=== PATIENT | female | born 1960 | race Caucasian/White ===

== ENCOUNTER → 2018-01-15 14:26 | Outpatient (CLI) | payer BC, SELFPAY ==
[2018-01-17 10:29] LABS: Carcinoembryonic Antigen 1.3 ng/mL (0.0-4.7)
== END ==
PROVIDERS: Visit Provider Obstetrics & Gynecology
DX: D39.11 Neoplasm of uncertain behavior of right ovary (principal); D39.12 Neoplasm of uncertain behavior of left ovary
CPT/HCPCS: 36415; 82378; 86304

== ENCOUNTER 2019-10-15 09:17 | Inpatient (IN) | payer BC, SELFPAY ==
[2019-10-15] VITALS (11 sets, daily range): BP systolic 92–103; BP diastolic 54–72; PULSE 79–107; RESP 16–18; TEMP 36.4–37.4; O2SAT 96–100; BMI 29.2; BMI 27.6
--- NOTE | 2019-10-15 09:30 | EKG12_ITS ---
Test Reason : SYNCOPE/FALL Blood Pressure : / mmHG Vent. Rate : 103 BPM Atrial Rate : 103 BPM P-R Int : 158 ms QRS Dur : 086 ms QT Int : 410 ms P-R-T Axes : 044 043 055 degrees QTc Int : 537 ms Sinus tachycardia Prolonged QT Abnormal ECG Confirmed by NILTON FOSTER, RAMY ([id number]), managing editor LEON GARCIA ([id number]) on 10/19/2019 9:32:26 AM Referred By: DELIA/SHEREE Confirmed By:MIKO CALLAWAY MD
--- NOTE | 2019-10-15 09:30 | CT_ITS ---
STUDY: CT BRAIN WITHOUT CONTRAST REASON FOR EXAM: Female, 59 years old. FALL, LAC TO UPPER LT EYEBROW RADIATION DOSAGE (If Supplied By Facility): CTDIvol = ( 44.99 ) mGy, DLP = ( 779.24 ) mGycm TECHNIQUE: Transaxial CT imaging of the brain was performed without administration of intravenous contrast material. Individualized dose optimization techniques were used for this CT. COMPARISON: No relevant priors. FINDINGS: Normal soft tissue structures. Normal calvarium. Normal size ventricles and extra-axial spaces for the patient''s age. Normal white matter tracts of the cerebral hemispheres. Normal basal ganglia and thalami. Normal brainstem. Normal cerebellum. There is no intracranial hemorrhage. There are no findings of an acute ischemic infarction. Normal visualized paranasal sinuses. CT/Brain/Head without Contrast IMPRESSION: Normal unenhanced CT scan of the brain. Electronically Signed: Jorge Salomon, at 10:34 EDT , Service support ,
--- NOTE | 2019-10-15 09:30 | RAD_ITS ---
STUDY: X-RAY CHEST REASON FOR EXAM: Female, 59 years old. SOB, recent fall TECHNIQUE: Single AP portable view of the chest. COMPARISON: None. FINDINGS: A right sided catheter is seen with the tip at the junction of the superior vena cava and right atrium. The lungs are clear and expanded. There is no demonstrated pleural abnormality. Normal size heart. Normal mediastinum and aravind. Normal visualized pulmonary arteries. Normal visualized aortic arch and descending thoracic aorta. Normal visualized thoracic spine. Normal visualized ribs, clavicles, and shoulders. Gaseous distention of the transverse colon. RAD/Chest 1 View (Portable) IMPRESSION: No acute abnormality is seen. Electronically Signed: Jorge Salomon, at 10:34 EDT , Service support ,
--- NOTE | 2019-10-15 09:31 | CT_ITS ---
STUDY: CT CERVICAL SPINE WITHOUT CONTRAST REASON FOR EXAM: Female, 59 years old. FALL, LAC TO UPPER LT EYEBROW RADIATION DOSAGE (If Supplied By Facility): CTDIvol = ( 20.95 ) mGy, DLP = ( 477.40 ) mGycm TECHNIQUE: High resolution transaxial imaging was performed without contrast material. Sagittal and coronal images were reconstructed. Individualized dose optimization techniques were used for this CT. COMPARISON: None FINDINGS: Normal craniovertebral junction. Normal anterior atlantoaxial articulation. Normal odontoid process. Normal cervical lordosis. Normal vertebral bodies and posterior osseous elements. C2-3: Normal endplates. Normal disc height and morphology. Normal central canal and intervertebral neuroforamina. C3-4: Normal endplates. Normal disc height and morphology. Normal central canal and intervertebral neuroforamina. C4-5: Normal endplates. Normal disc height and morphology. Normal central canal and intervertebral neuroforamina. C5-6: Normal endplates. Normal disc height and morphology. Normal central canal and intervertebral neuroforamina. C6-7: Normal endplates. Normal disc height and morphology. Normal central canal and intervertebral neuroforamina. C7-T1: Normal endplates. Normal disc height and morphology. Normal central canal and intervertebral neuroforamina. Normal visualized soft tissue structures. CT/Spine Cervical without Contras IMPRESSION: Normal unenhanced CT examination of the cervical spine. Electronically Signed: Jorge Salomon, at 10:36 EDT , Service support ,
--- NOTE | 2019-10-15 09:34 | ED.VIS.GEN ---
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 Patient states that her last chemo was yesterday she thinks. She states that she has been having some nausea and diminished appetite. She states that today, she got up from a seated position. She thinks that she passed out. She struck her head. She is unsure if she lost consciousness. She denies fevers or chills. She has no other systemic complaints. She denies any pain. She does admit to mild nausea. She states for the past 2 days, she has had trouble focusing, which she states is not atypical for her. Prior similar symptoms: Yes Recent Illness/Hospitalization: Yes Past Medical History - Allergies and Home Meds Allergies/Adverse Reactions: Allergies paclitaxel [From Taxol] Allergy (Verified 10/15/19 09:18) Anaphylaxis Prior records reviewed: Yes Past Medical History: - - SVT, ovarian cancer, on TPN, Smoking Status: Never smoker Review of Systems General: Reports: Malaise. Denies: Chills, Fever, Sweats Eyes: Denies: Visual changes - bilaterally, Diplopia ENT: Denies: Rhinorrhea, Sore throat Cardiovascular: Denies: Chest pain, Palpitations Respiratory: Denies: Dyspnea, Cough, Dyspnea on exertion Gastrointestinal: Reports: Nausea. Denies: Abdominal pain, Vomiting, Diarrhea, Melena, Hematochezia Genitourinary: Denies: Dysuria, Hematuria, Frequency Musculoskeletal: Denies: Back pain, Extremity Pain Skin: Denies: Rash, Wounds Neurological: Denies: Headache, Weakness, Numbness Physical Exam Vital Signs/Narrative: Vital Signs Temp Pulse Resp BP Pulse Ox 10/15/19 09:18 99.3 F H 107 H 16 96/72 96 Inital Vital Signs reviewed: Yes General: Well nourished, Well developed, No Acute Distress Head: Normocephalic, Trauma - 4 cm full-thickness laceration above the left eyebrow. Eyes: Perrl, EOMI ENT: Moist mucous membranes, No rhinorrhea Neck: Supple, Nontender Cardiovascular: Regular rate, Regular rhythm, No murmurs Respiratory: No distress, CTA bilaterally, Chest nontender Abdomen: Soft, Nontender, Nondistended, Normal bowel sounds Back: Nontender, Normal Inspection Extremities: Nontender, No edema Skin: Normal color, No rash Neurological: Alert, Oriented x3, Cranial nerves II-XII grossly intact, Normal Strength, Normal Sensation Psychological: Normal affect, Normal Mood Diagnostic/Tx/Re-eval Clinical Impression(s) from Imaging Studies Brain CT 10/15/19 09:30 IMPRESSION: Normal unenhanced CT scan of the brain. Electronically Signed: Jorge Salomon, at 10:34 EDT , Service support , Chest X-Ray 10/15/19 09:30 IMPRESSION: No acute abnormality is seen. Electronically Signed: Jorge Salomon, at 10:34 EDT , Service support , Cervical Spine CT 10/15/19 09:31 IMPRESSION: Normal unenhanced CT examination of the cervical spine. Electronically Signed: Jorge Salomon, at 10:36 EDT , Service support , Abnormal Lab Results 10/15/19 10/15/19 10/15/19 09:54 09:54 09:54 WBC 2.9 L RBC 2.97 L Hgb 8.9 L Hct 27.5 L MCV 92.6 MCH 30.0 MCHC 32.4 RDW Std Deviation 55.0 H RDW Coeff of Kalyani 16.2 H Plt Count 411 MPV 10.1 Immature Gran % (Auto) 0.700 Neut % (Auto) 78.8 H Lymph % (Auto) 16.7 L Noble % (Auto) 3.5 Eos % (Auto) 0.0 Baso % (Auto) 0.3 Absolute Neuts (auto) 2.3 Absolute Lymphs (auto) 0.48 L Nucleated RBC % 1.7 PT 13.5 INR 1.1 Sodium 129 L Potassium 2.4 L* Chloride 73 L* Carbon Dioxide > 45.0 H* Anion Gap TNP BUN 80 H Creatinine 1.65 H Estim Creat Clear Calc 1.46 Est GFR (MDRD) Af Amer 41 L Est GFR (MDRD) Non-Af 34 L BUN/Creatinine Ratio 48.5 H Glucose 113 H Lactic Acid Calcium 8.7 Total Bilirubin 0.60 AST 42 H ALT 23 Alkaline Phosphatase 77 Total Protein 7.4 Albumin 2.0 L Globulin 5.4 H Albumin/Globulin Ratio 0.4 L 10/15/19 09:54 WBC RBC Hgb Hct MCV MCH MCHC RDW Std Deviation RDW Coeff of Kalyani Plt Count MPV Immature Gran % (Auto) Neut % (Auto) Lymph % (Auto) [place] % (Auto) Eos % (Auto) Baso % (Auto) Absolute Neuts (auto) Absolute Lymphs (auto) Nucleated RBC % PT INR Sodium Potassium Chloride Carbon Dioxide Anion Gap BUN Creatinine Estim Creat Clear Calc Est GFR (MDRD) Af Amer Est GFR (MDRD) Non-Af BUN/Creatinine Ratio Glucose Lactic Acid 2.5 H* Calcium Total Bilirubin AST ALT Alkaline Phosphatase Total Protein Albumin Globulin Albumin/Globulin Ratio - Rhythm Strip Rhythm Strip: Sinus Rhythm Rate: 80 Ectopy: None - EKG Initial EKG Interpretation: Sinus Tachycardia, - Prior: No Prior - Sinus tachycardia. Rate of 103. Prolonged QT. No acute ischemia. - Medical Decision Making The patient is a 59-year-old female with history of underlying ovarian cancer with peritoneal metastasis, last chemotherapy on Saturday, last paracentesis yesterday that presents to the emergency department with nausea and syncope. Patient states that she has just been nauseated with diminished oral intake. She had a fall today and hit the ground. She states that she did pass out. The patient was recently hospitalized at [facility]. She did have an ablation at that time. She does have large laceration. She underwent CT of the head and C-spine which are unremarkable for acute process. Her laceration was repaired. EKG was obtained which showed a prolonged QT without evidence of acute ischemia. Metabolic work-up was pursued. The patient is hypochloremic and hypokalemic. She was given IV fluids and potassium replacement. Clinically, she does appear to have dehydration and with electrolyte abnormalities and syncope, I do feel that she would benefit from admission. The patient was discussed with the hospitalist. Impression 1. Syncope 2. Hypokalemia 3. Hypochloremia 4. Dehydration 5. History of ovarian cancer with active chemotherapy Procedures - Lacerations No standard instances Length: 1.57 in Depth: Skin Shape: Linear Prep: Sterile Conditions, Fide Laceration repair: Irrigated, Lidocaine with epi, Local Irrigated (ml): 200 Number of Sutures/Tacho: 8 Suture Information: Vicryl, 5-0
[2019-10-15] MEDS: 0.9% Normal Saline 1,000 ML 1000 ML IV (09:54)
[2019-10-15 10:05] LABS: Hematocrit 27.5 % (37-47); Hemoglobin 8.9 g/dL (12.0-15.0); Mean Corp Hgb Conc 32.4 g/dL (32-36); Mean Corpuscular Volume 92.6 fL (81-99); Mean Platelet Vol. 10.1 fl (6.2-12.0); POSITIVE DIFFERENTIAL YES; POSITIVE MORPHOLOGY YES; Platelet Count 411 K/mm3 (150-450); RBC Distribution Width CV 16.2 % (11.6-14.6); Red Blood Count 2.97 M/mm3 (4.2-5.4); White Blood Count 2.9 K/mm3 (4.4-11.0)
[2019-10-15 10:13] LABS: International Normalized Ratio 1.1; Prothrombin Time (Protime)PT. 13.5 SECONDS (11.7-14.9)
[2019-10-15 10:31] LABS: ALB/GLOB Ratio 0.4 RATIO (0.9-2.4); AST(SGOT) 42 U/L (15-37); Alanine Aminotransfer ALT/SGPT 23 U/L (13-56); Alkaline Phosphatase 77 U/L (45-117); BUN 80 mg/dL (7-18); BUN/Creat Ratio 48.5 RATIO (10-20); Calcium,Total 8.7 mg/dL (8.5-10.1); Carbon Dioxide > 45.0 mmol/L (21.0-32.0); Chloride 73 mmol/L (98-107); Creatinine, Serum 1.65 mg/dL (0.55-1.02); EST Glomerular Filtration Rate 34 mL/min (>60); Est Glom Filt Rate - Afr Amer 41 mL/min (>60); Estimated Creatinine Clearance 1.46 ml/min; Globulin 5.4 g/dL (2.2-4.2); Glucose 113 mg/dL (74-106); Lactic Acid 2.5 mmol/L (0.4-1.9); Potassium 2.4 mmol/L (3.5-5.1); Protein, Total 7.4 g/dL (6.4-8.2); Sodium Level 129 mmol/L (136-145)
[2019-10-15 10:49] LABS: Differential Indicated MANUAL DIFF; Metamyelocyte 1 % (0-1); Neutrophil-Band 20 % (0-5); Neutrophil-Segmented 61 % (47-70)
[2019-10-15 10:50] LABS: Lymphocyte 16 % (19-41); Monocyte 2 % (0-10); Nucleated Red Bld Cells,Manual 3 % (0-5)
[2019-10-15 10:51] LABS: Platelet Estimate ADEQUATE (ADEQ); Red Cell Morphology NORM C+C NORMAL (NORM C&C)
[2019-10-15 11:04] LABS: Magnesium 2.7 mg/dL (1.6-2.6)
[2019-10-15 11:31] LABS: Absolute Lymphocyte Count 0.46 X10^3/uL (0.83-4.51); Absolute Neutrophil Count 2.3 X10^3/uL (2.0-7.7)
[2019-10-15 11:32] LABS: Scan Smear per Review Criteria MANUAL DIFF
[2019-10-15] MEDS: 0.9% Normal Saline 1,000 ML 125 ML IV (13:43)
[2019-10-15 14:01] LABS: Reflex Lactate? Y
[2019-10-15 14:09] LABS: Mucous, Urine 0 SEEN /hpf (<or=2+)
[2019-10-15 14:14] LABS: Color, Urine Straw (Yellow); Glucose, Dipstick Normal (Normal); Ketone-Dipstick Negative (Negative); Leukocyte Esterase-Dipstick 100 /ul (Negative); Nitrite-Dipstick Negative (Negative); Occult Blood-Urine 10 /ul (Negative); Protein-Dipstick 15 mg/dl (Negative); Urine Bilirubin Dipstick Negative (Negative); Urine Clarity Sl. Cloudy (Clear); Urine Urobilinogen Normal (Normal)
[2019-10-15 14:28] LABS: Bacteria 4+ /hpf (None Seen); Red Blood Cells-Urine 0-5 SEEN /hpf (0-5); Squamous Epithelial Cells - UA 0-5 SEEN /hpf (5-10); White Blood Cells 5-10 SEEN /hpf (0-5)
--- NOTE | 2019-10-15 14:47 | PCM.HP.STD ---
History of Present Illness Date of Admission: 10/15/19 Chief Complaint: Syncope The patient is a 59 year old F with a PMH as below who presents with syncope. She says today she was in the bathroom and she fell forward and hit her head and blacked out. Her daughter who lives with her said that she heard the fall and states that her mom was only out for a couple of seconds. She denies any palpitations prior to the fall but she has been feeling weak since her recent admission to the [facility] [place] for an ablation for SVT about a month ago. She has a history of ovarian cancer with peritoneal mets, this was first diagnosed and 2017 and she underwent chemotherapy and went into remission for 6 months and since then has been undergoing chemotherapy. 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 She has been on TPN since April per the daughter. She also gets paracentesis every other day by home health, her last drainage was about 350 cc yesterday. She does not eat or drink very well and when she presented to the ER today she was anemic with a potassium of 2.4, chloride of 73 and a CO2 greater than 45. Her creatinine is 1.65 and her lactic acid was elevated to 2.5 without any signs of infection. She denies any abdominal pain or fevers, chills. She denies any dysuria but she does have 4+ urine bacteria. 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 Denies: Chills, Fever, Weight Change HEENT: Denies: Head Aches, Sinus Congestion, Sinus Drainage Cardiovascular: Denies: Chest Pain, Palpitations Respiratory: Denies: Cough, Shortness of breath at rest, Sputum production Gastrointestinal: Denies: Abdominal Pain, Nausea, Vomiting Genitourinary: Denies: Dysuria Musculoskeletal: Denies: Joint Pain, Joint Tenderness Skin: Denies: Rash, Wounds Neurological: Denies: Numbness, Tingling, Focal weakness Psychiatric: Denies: Anxiety, Depression Hematologic/ Lymphatic: Denies: Easy Bruising, Easy Bleeding VTE Information - Inpt Only VTE Present on Admission: No - Physical Exam Vitals/I&O's: Vital Signs Temp Pulse Resp BP Pulse Ox 97.6 F L 93 18 99/59 L 96 10/15/19 12:15 10/15/19 13:37 10/15/19 12:15 10/15/19 13:36 10/15/19 12:15 Oxygen Delivery Method Room Air Weight: 176 lb 9.444 oz Body Mass Index (BMI) 27.6 Orthostatic Vital Signs Start: 10/15/19 13:36 Freq: q24h Status: Active Protocol: Activity Type Activity Date Activity User E-Sign Co-Sign Detail Recorded Client Recorded Date Recorded By Document 10/15/19 13:36 [facility] [id number] 10/15/19 13:56 [facility] 10/15/19 13:36 Orthostatic Vitals Sitting -Blood Pressure (90/60-120/80) 99/64 -Extremity Use Right Arm -Pulse Rate (60-100) 92 Lying -Blood Pressure (90/60-120/80) 99/59 L -Extremity Use Right Arm -Pulse Rate (60-100) 91 Intake and Output for Last 24 Hours 10/13/19 10/14/19 10/15/19 23:59 23:59 23:59 Intake Total 1000 / 1000 Balance 1000 / 1000 General: Alert, Oriented x3, Cooperative, Lethargic HEENT: Atraumatic, PERRLA, EOMI, Normocephalic Oral: Dry Mucosa Neck: Supple, No JVD Lungs: Clear to auscultation, Normal air movement, No rhonchi, No wheeze, No rales, Diminished Cardiovascular: Regular rate, Regular Rhythm, Normal S1, Normal S2, No murmurs Abdomen: Soft, Non Tender, No Hepato-splenomegaly, Distended Extremities: No edema, Capillary Refill Less than 3 Seconds Skin: No rashes, No breakdown Neurological: Neuro grossly intact, Sensory exam intact to light touch and pain Psych/Mental Status: Normal Affect, Appropriate Laboratory Results 10/15/19 09:54: WBC 2.9 L, RBC 2.97 L, Hgb 8.9 L, Hct 27.5 L, MCV 92.6, MCH 30.0, MCHC 32.4, RDW Std Deviation 55.0 H, RDW Coeff of Kalyani 16.2 H, Plt Count 411, MPV 10.1, Immature Gran % (Auto) CHILD PSYCHOLOGIST, Neut % (Auto) CHILD PSYCHOLOGIST, Lymph % (Auto) CHILD PSYCHOLOGIST, [place] % (Auto) CHILD PSYCHOLOGIST, Eos % (Auto) CHILD PSYCHOLOGIST, Baso % (Auto) CHILD PSYCHOLOGIST, Absolute Neuts (auto) 2.3, Absolute Lymphs (auto) 0.46 L, Neutrophils % (Manual) 61, Band Neutrophils % 20 H, Lymphocytes % (Manual) 16 L, Monocytes % (Manual) 2, Metamyelocytes % 1, Nucleated RBC % CHILD PSYCHOLOGIST, Nucleated RBCs/100 WBC 3, Diff Path Review July, Platelet Estimate ADEQUATE, RBC Morphology NORM C+C 10/15/19 09:54: PT 13.5, INR 1.1 10/15/19 09:54: Sodium 129 L, Potassium 2.4 L*, Chloride 73 L*, Carbon Dioxide > 45.0 H*, Anion Gap TNP, BUN 80 H, Creatinine 1.65 H, Estim Creat Clear Calc 1.46, Est GFR (MDRD) Af Amer 41 L, Est GFR (MDRD) Non-Af 34 L, BUN/Creatinine Ratio 48.5 H, Glucose 113 H, Calcium 8.7, Total Bilirubin 0.60, AST 42 H, ALT 23, Alkaline Phosphatase 77, Total Protein 7.4, Albumin 2.0 L, Globulin 5.4 H, Albumin/Globulin Ratio 0.4 L 10/15/19 09:54: Lactic Acid 2.5 H* 10/15/19 09:54: Magnesium 2.7 H 10/15/19 10:20: Urine Color Straw, Urine Clarity Sl. Cloudy, Urine pH 8.0, Ur Specific [place] 1.010, Urine Protein 15 H, Urine Glucose (UA) Normal, Urine Ketones Negative, Urine Occult Blood 10 H, Urine Nitrite Negative, Urine Bilirubin Negative, Urine Urobilinogen Normal, Ur Leukocyte Esterase 100 H, Urine RBC 0-5 SEEN, Urine WBC 5-10 SEEN, Ur Squamous Epith Cells 0-5 SEEN, Urine Bacteria 4+, Urine Mucus 0 SEEN Current Medications Acetaminophen (Tylenol) 650 mg PO Q6H PRN PRN PRN Reason: Pain Score 1-10/Temp > 100.7 F Heparin Sodium (Porcine) (Heparin Na) 5,000 unit SC Q8 ALEXANDRA Sodium Chloride () 1,000 mls @ 125 mls/hr IV .Q8H ALEXANDRA Last Admin: 10/15/19 13:43 Dose: 125 mls/hr Documented by: Sodium Chloride () 250 mls @ 15 mls/hr IV .[id number] PRN PRN Reason: Saline Flush Sodium Chloride () 250 mls @ 15 mls/hr IV .[id number] PRN PRN Reason: Additional IVPB Infusion Melatonin (Melatonin) 3 mg PO QHS PRN PRN PRN Reason: INSOMNIA Ondansetron HCl (Zofran) 4 mg IV Q8H PRN PRN PRN Reason: NAUSEA/VOMITING Sodium Chloride () 10 - 40 ml IV UD PRN PRN Reason: SALINE FLUSH Sodium Chloride (0.9% Nacl (Sterile) Posiflush) 10 - 40 ml IV UD PRN PRN Reason: Port access or dressing change Assessment/Plan 1. Syncope secondary to dehydration with possible XENA/hypokalemia and hyponatremia -Contraction alkalosis secondary to poor p.o. intake and peritoneal drainage, calcium 73 with an elevated bicarb -She has a PEG tube set to gravity drainage therefore it is unclear as to how much she actually absorbs p.o. -Her right nephrostomy tube is secondary to obstruction likely from peritoneal mets, will continue this to drainage -We will attempt to have a paracentesis done tomorrow by nursing staff otherwise may have to send him to radiology for drainage, does not appear that she has significant volume drained each time, yesterday drained 350 cc per the daughter -Nutrition is primarily through TPN that she has been on since April -Continue with IV fluids and repeat labs in the morning -We will check an echo given her recent ablation and the fact that she has a prolonged QT -Continue with her TPN -Her creatinine on admission is 1.65 however we do not have a baseline to compare to. 2. Ovarian cancer with peritoneal metastases -She has been undergoing chemotherapy since 2016 with a single remission for 6 months -I did have a 20-minute discussion with the family on both CODE STATUS as well as palliative care and hospice. She is a DNR CCA, however it does not appear that they are ready to discuss palliative care or hospice. They would like to continue with chemotherapy at the moment, they state that prior to her admission to [facility] [place] with SVT her quality of life was pretty good and that she was much more ambulatory than she has been the last several weeks. 3. SVT status post ablation -Currently on metoprolol 12.5 mg twice daily, EKG in the ER demonstrated prolonged QT -We will continue with her beta-elo but will obtain an echo DVT: Heparin Inpatient E&M: 42217 Init Hosp L3 Procedures: 52349 Advncd Care Plan 30 Min
--- NOTE | 2019-10-15 14:55 | ECHOD_ITS ---
Reason For Study: Syncope Procedure This was a 2D Doppler, Color Flow transthoracic echocardiogram. The study was technically difficult. Exam performed portable in patient room. Left Ventricle Normal LV size. Left ventricular systolic function is normal. The estimated ejection fraction is 65 %. Transmitral doppler flow suggestive of impaired relaxation of left ventricle. No regional wall motion abnormalities noted. Right Ventricle Normal RV size. Normal systolic function. Atria Normal left atrium. Normal right atrium. No doppler evidence for ASD. Mitral Valve There is no mitral annular calcification. Normal mitral valve. Trivial mitral valve insufficiency. Tricuspid Valve Normal tricuspid valve. Trivial tricuspid valve insufficiency. Right ventricular systolic pressure estimated to be 33 mmHg. Aortic Valve Trisinus/trileaflet aortic valve. Normal aortic valve. Pulmonic Valve The pulmonic valve is not well visualized. Great Vessels Normal sized aortic root. Pericardium/Pleural No pericardial effusion. MMode/2D Measurements & Calculations LVIDd: 2.5 cm IVSd: 0.95 cm Ao root diam: 3.2 cm LVIDs: 1.9 cm LVPWd: 0.83 cm RVDd: 2.7 cm FS: 24.7 % LAV(MOD-bp): 18.4 ml LA A4 area: 8.4 cm2 LA dimension(2D): 2.8 cm LAV(MOD-bp) Indexed: 9.6 ml/m2 LAV(MOD-sp2): 22.8 ml LAV(MOD-sp4): 14.7 ml RA A4 area: 8.1 cm2 Doppler Measurements & Calculations MV E max ronaldo: 70.7 cm/sec Lat Peak E' Ronaldo: 11.6 cm/sec Med Peak E' Ronaldo: 8.3 cm/sec MV A max ronaldo: 91.9 cm/sec E/E' lat: 6.1 E/E' med: 8.5 MV E/A: 0.77 Ao V2 max: 134.5 cm/sec LV V1 max: 123.7 cm/sec PA V2 max: 117.3 cm/sec Ao max P.2 mmHg LV V1 max P.1 mmHg TR max ronaldo: 274.5 cm/sec TR max P.1 mmHg Interpretation Summary The study was technically difficult. Left ventricular systolic function is normal. The estimated ejection fraction is 65 %. Trivial mitral valve insufficiency. Trivial tricuspid valve insufficiency. Right ventricular systolic pressure estimated to be 33 mmHg. Transmitral doppler flow suggestive of impaired relaxation of left ventricle Ordering Physician: Torsten Farrell Performed By: Samuel Sumner RVT
[2019-10-15] MEDS: Heparin Injection (Vial) 5,000 UNIT/ML VIAL 5000 UNIT SC ×2 (15:08→21:20)
--- NOTE | 2019-10-15 15:30 | CASEMGMT ---
SW completed a Palliative tool for patient. She did score a 4, however physician spoke with patient and her daughter about Palliative and Hospice and they are not interested at this time. Honey VENCES MSW
--- NOTE | 2019-10-15 15:49 | PCM.NTREPORT ---
Nutrition Therapy Report - History Nutrition Services has been consulted to:: Manage parenteral nutrition Current diet / nutrition support order:: Regular diet; will change to full liquids per pt request - Anthropometric Measurements Height:: 5 ft 7 in Weight:: 80.1 kg Body Mass Index (BMI):: 27.6 - Relevant Labs Relevant Labs:: WBC 2.9 K/mm3 (4.4-11.0) L 10/15/19 09:54 RBC 2.97 M/mm3 (4.2-5.4) L 10/15/19 09:54 Hgb 8.9 g/dL (12.0-15.0) L 10/15/19 09:54 Hct 27.5 % (37-47) L 10/15/19 09:54 RDW Std Deviation 55.0 fl (35.1-43.9) H 10/15/19 09:54 RDW Coeff of Kalyani 16.2 % (11.6-14.6) H 10/15/19 09:54 Absolute Lymphs (auto) 0.46 X10^3/uL (0.83-4.51) L 10/15/19 09:54 Band Neutrophils % 20 % (0-5) H 10/15/19 09:54 Lymphocytes % (Manual) 16 % (19-41) L 10/15/19 09:54 Sodium 129 mmol/L (136-145) L 10/15/19 09:54 Potassium 2.4 mmol/L (3.5-5.1) L* 10/15/19 09:54 Chloride 73 mmol/L (98-107) L* 10/15/19 09:54 Carbon Dioxide > 45.0 mmol/L (21.0-32.0) H* 10/15/19 09:54 BUN 80 mg/dL (7-18) H 10/15/19 09:54 Creatinine 1.65 mg/dL (0.55-1.02) H 10/15/19 09:54 Est GFR (MDRD) Af Amer 41 mL/min (>60) L 10/15/19 09:54 Est GFR (MDRD) Non-Af 34 mL/min (>60) L 10/15/19 09:54 BUN/Creatinine Ratio 48.5 RATIO (10-20) H 10/15/19 09:54 Glucose 113 mg/dL (74-106) H 10/15/19 09:54 Lactic Acid 2.5 mmol/L (0.4-1.9) H* 10/15/19 09:54 Magnesium 2.7 mg/dL (1.6-2.6) H 10/15/19 09:54 AST 42 U/L (15-37) H 10/15/19 09:54 Albumin 2.0 g/dL (3.2-5.0) L 10/15/19 09:54 Globulin 5.4 g/dL (2.2-4.2) H 10/15/19 09:54 Albumin/Globulin Ratio 0.4 RATIO (0.9-2.4) L 10/15/19 09:54 - Assessment Food / Nutrition-Related History:: Pt with eyes closed and clearly does not feel like talking so, daughter at bedside answered most questions--- pt takes some full liquids at home but, TPN is main source of nutrition & PEG tube is for gravity drain not for nutrition. Daughter will bring in TPN, as she does not know TPN formulation but, did clarify that the pt receives lipids every saturday & CHO/Pro daily. Pt does not take ONS with full liquids but, open to trying as tolerated. Daughter reports UBW~200 lbs approx 1-2 months ago--wt loss calculated~12% which is significant for malnutrition. 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 Pt passed dysphagia screening--will change current diet from regular as ordered to full liquids as tolerated. - Nutrition Diagnosis Problem / Etiology / Signs & Symptoms (PES):: Pro/fifi malnutrition of chronic disease related to inability to take adequate PO nutrition as evidenced by wt loss~12% x past 1-2 months, TPN for nutrition to supplement inadequate oral intake. Evidence of Malnutrition Exists:: Yes Severe PCM:: Chronic Illness - Nutrition Intervention Nutrition Prescription:: Estimated Nutrition needs~[id number] kcal and ~90-110 gm protein/day - Food / Nutrient Delivery Interventions Summary of nutrition intervention:: Will change diet to full liquids with ensure pudding TID w/ meals. Will order TPN with lipid infusion tomorrow per home TPN regimen. Will order daily weights. Nutrition support ordered as / adjusted to:: Will order TPN to start tomorrow 8/[address] Stevens--2L 20%dextrose/5%AA with electrolytes, MVI, trace metals, folic acid along with 250 ml 20% lipid infusion to provide 2260 kcal and 100 gm protein/day. Check Triglyceride level in AM. Will change diet order from Regular to Full Liquids as per pt request. Daily weights. Nutrition education provided?: Yes - MNT Monitoring Further MNT monitoring and evaluation required?: Yes MNT Follow-up in:: 1-2 days
[2019-10-15 16:01] LABS: Lactic Acid 2.3 mmol/L (0.4-1.9)
[2019-10-15 16:51] LABS: Bedside Glucose 104 mg/dL (70-110)
--- NOTE | 2019-10-15 16:55 | NURSING ---
Report given to Leonor Beach RN at this time.
[2019-10-15] MEDS: 0.9% Saline Lock 10 ML Syringe IV (18:22)
[2019-10-15] MEDS: Ondansetron 4 MG/2 ML Vial IV (18:22)
[2019-10-16] VITALS (11 sets, daily range): BP systolic 90–120; BP diastolic 57–74; PULSE 103–122; RESP 17–18; TEMP 36.3–37.5; O2SAT 95–96
[2019-10-16] MEDS: 0.9% Normal Saline 1,000 ML 125 ML IV ×3 (00:01→16:31)
[2019-10-16 01:36] LABS: Bedside Glucose 96 mg/dL (70-110)
[2019-10-16] MEDS: Ondansetron 4 MG/2 ML Vial IV ×2 (03:49→10:19)
[2019-10-16 05:15] LABS: Absolute Lymphocyte Count 0.31 X10^3/uL (0.83-4.51); Absolute Neutrophil Count 0.8 X10^3/uL (2.0-7.7); Basophil# 0.03 X10^3/uL; Basophil% 2.5 % (0-1); Hematocrit 24.6 % (37-47); Lymphocyte # 0.31 X10^3/ul (4.0); Lymphocyte % 25.4 % (19-41); Mean Corp Hgb Conc 32.5 g/dL (32-36); Mean Corpuscular Volume 92.1 fL (81-99); Mean Platelet Vol. 9.9 fl (6.2-12.0); Monocyte# 0.04 X10^3/uL; Monocyte% 3.3 % (0-10); NRBC Flagged by Analyzer 1.6 % (0-5); Neutrophil # 0.79 X10^3/uL (2.7-7.7); Neutrophil % 64.7 % (47-70); POSITIVE COUNT YES; POSITIVE DIFFERENTIAL YES; POSITIVE MORPHOLOGY YES; Platelet Count 302 K/mm3 (150-450); RBC Distribution Width CV 16.5 % (11.6-14.6); RBC Distribution Width SD 55.5 fl (35.1-43.9); Red Blood Count 2.67 M/mm3 (4.2-5.4)
[2019-10-16 05:19] LABS: Differential Indicated SCAN CRITERIA MET; White Blood Count 1.2 K/mm3 (4.4-11.0)
[2019-10-16] MEDS: 0.9% Saline Lock 10 ML Syringe IV (05:28)
[2019-10-16] MEDS: Heparin Injection (Vial) 5,000 UNIT/ML VIAL 5000 UNIT SC (05:33)
[2019-10-16 05:41] LABS: Anisocytosis 1+; Platelet Estimate ADEQUATE (ADEQ)
[2019-10-16 05:46] LABS: ALB/GLOB Ratio 0.4 RATIO (0.9-2.4); AST(SGOT) 41 U/L (15-37); Alanine Aminotransfer ALT/SGPT 20 U/L (13-56); Albumin, Serum 1.8 g/dL (3.2-5.0); Alkaline Phosphatase 71 U/L (45-117); Anion Gap 5 (5-15); BUN 60 mg/dL (7-18); Calcium,Total 8.1 mg/dL (8.5-10.1); Chloride 85 mmol/L (98-107); Creatinine, Serum 1.82 mg/dL (0.55-1.02); EST Glomerular Filtration Rate 30 mL/min (>60); Est Glom Filt Rate - Afr Amer 37 mL/min (>60); Estimated Creatinine Clearance 33.16 ml/min; Glucose 101 mg/dL (74-106); Magnesium 2.3 mg/dL (1.6-2.6); Phosphorus 3.7 mg/dL (2.5-4.9); Potassium 2.7 mmol/L (3.5-5.1); Protein, Total 6.8 g/dL (6.4-8.2); Sodium Level 134 mmol/L (136-145)
[2019-10-16 05:55] LABS: Bedside Glucose 106 mg/dL (70-110)
[2019-10-16] MEDS: TBO-FILGRASTIM 300 MCG/0.5 ML ML SC (10:49)
[2019-10-16 12:08] LABS: Pathologist Review Reviewed
[2019-10-16 12:09] LABS: Pathologist Review Reviewed
--- NOTE | 2019-10-16 13:33 | CASEMGMT ---
RN CM Assessment Introduced role of CM to patient in room. Pt is lethargic, able to participate some in assessment, but not feeling well, then asked to hold on further questions until tomorrow. Patient did say her daughter was going to be speaking with the physician today. Patient has a history of ovarian cancer and has R percutaneous nephrostomy tube, PEG tube, Hernandez for TPN @ home. Patient has been living with her daughter. PCP: pt is just seeing oncologist for now. Specialist: Oncologist Pharmacy: [facility] Pharmacy benefit: yes Living Arrangements: Pt is living with her daughter in one story home. One step into home. Daughter is able to assist at home with ADL's, meals and home management. DME: wheeled walker, lift chair, BSC Infusion: [place] for TPN @ Home [facility]: [facility], [facility] Referral: Palliative/Hospice referral may be needed. DC PLAN: undetermined. Kane JACOBSEN RN ACM
--- NOTE | 2019-10-16 14:32 | CASEMGMT ---
Social Work SW met with pt daughter who states pt has decided that she would like to stop aggressive treatment and is ready for hospice. Pt will be going home with daughter Malaika who will be primary menagerie caretaker. Emotional support provided to Malaika and discussed hospice program. SW informed physician of pt choice and physician met with pt and confirmed this is pt choice. Referral made to [facility] and they will see pt today at 3:30. Per physician, pt will remain in hospital overnight for medication adjustment and to allow hospice to get DME in home. Anticipate d/c tomorrow to dgt home with [facility] hosp[facility] services. NAV Poe
[2019-10-16 14:45] LABS: Bedside Glucose 114 mg/dL (70-110)
--- NOTE | 2019-10-16 15:14 | PN_ITS ---
Subjective: She does not feel significantly improved from yesterday. No significant pain. Vitals/I&O's: Vital Signs Temp Pulse Resp BP Pulse Ox 97.4 F L 122 H 18 95/67 96 10/16/19 09:59 10/16/19 10:13 10/16/19 09:59 10/16/19 10:13 10/16/19 09:59 Oxygen Flow Rate (L/min) 2 Oxygen Delivery Method Room Air Weight: 178 lb 9.191 oz Body Mass Index (BMI) 27.6 Orthostatic Vital Signs Start: 10/15/19 13:36 Freq: q24h Status: Active Protocol: Activity Type Activity Date Activity User E-Sign Co-Sign Detail Recorded Client Recorded Date Recorded By Document 10/15/19 13:36 [facility] [id number] 10/15/19 13:56 [facility] 10/15/19 13:36 Orthostatic Vitals Sitting -Blood Pressure (90/60-120/80) 99/64 -Extremity Use Right Arm -Pulse Rate (60-100) 92 Lying -Blood Pressure (90/60-120/80) 99/59 L -Extremity Use Right Arm -Pulse Rate (60-100) 91 Intake and Output for Last 24 Hours 10/14/19 10/15/19 10/16/19 23:59 23:59 23:59 Intake Total 2558.33 / 2558.33 1570 / 1570 Output Total 1300 / 1300 475 / 475 Balance 1258.33 / 1258.33 1095 / 1095 General: Alert, Oriented x3, Cooperative, Lethargic HEENT: Atraumatic, PERRLA, EOMI, Normocephalic Oral: Dry Mucosa Neck: Supple, No JVD Lungs: Clear to auscultation, Normal air movement, No rhonchi, No wheeze, No rales, Diminished Cardiovascular: Regular rate, Regular Rhythm, Normal S1, Normal S2, No murmurs Abdomen: Soft, Non Tender, No Hepato-splenomegaly, Distended Extremities: No edema, Capillary Refill Less than 3 Seconds Skin: No rashes, No breakdown Neurological: Neuro grossly intact, Sensory exam intact to light touch and pain Psych/Mental Status: Normal Affect, Appropriate Microbiology Past 72 Hours 10/15/19 13:50 Urine, Clean Catch Urine Culture - Preliminary GNR lactose technician automatic Laboratory Results 10/15/19 09:54: Diff Path Review Reviewed 10/15/19 14:55: Lactic Acid 2.3 H* 10/15/19 16:47: POC Glucose 104 10/16/19 01:31: POC Glucose 96 10/16/19 05:05: WBC 1.2 L*, RBC 2.67 L, Hgb 8.0 L, Hct 24.6 L, MCV 92.1, MCH 30.0, MCHC 32.5, RDW Std Deviation 55.5 H, RDW Coeff of Kalyani 16.5 H, Plt Count 302, MPV 9.9, Immature Gran % (Auto) 4.100 H, Neut % (Auto) 64.7, Lymph % (Auto) 25.4, [place] % (Auto) 3.3, Eos % (Auto) 0.0, Baso % (Auto) 2.5 H, Absolute Neuts (auto) 0.8 L, Absolute Lymphs (auto) 0.31 L, Nucleated RBC % 1.6, Differential Comment COMMENT, Diff Path Review Reviewed, Platelet Estimate ADEQUATE, Anisocytosis 1+ 10/16/19 05:05: Sodium 134 L, Potassium 2.7 L*, Chloride 85 L, Carbon Dioxide 44.0 H, Anion Gap 5, BUN 60 H, Creatinine 1.82 H, Estim Creat Clear Calc 33.16, Est GFR (MDRD) Af Amer 37 L, Est GFR (MDRD) Non-Af 30 L, BUN/Creatinine Ratio 33.0 H, Glucose 101, Calcium 8.1 L, Phosphorus 3.7, Magnesium 2.3, Total Bilirubin 0.60, AST 41 H, ALT 20, Alkaline Phosphatase 71, Total Protein 6.8, Albumin 1.8 L, Globulin 5.0 H, Albumin/Globulin Ratio 0.4 L 10/16/19 05:42: POC Glucose 106 10/16/19 14:33: POC Glucose 114 H Current Medications Acetaminophen (Tylenol) 650 mg PO Q6H PRN PRN PRN Reason: Pain Score 1-10/Temp > 100.7 F Heparin Sodium (Porcine) (Heparin Na) 5,000 unit SC Q8 [facility] Last Admin: 10/16/19 05:33 Dose: 5,000 unit Documented by: Sodium Chloride () 1,000 mls @ 125 mls/hr IV .Q8H [facility] Last Infusion: 10/16/19 11:20 Dose: 125 mls/hr Documented by: Sodium Chloride () 250 mls @ 15 mls/hr IV .[id number] PRN PRN Reason: Saline Flush Sodium Chloride () 250 mls @ 15 mls/hr IV .[id number] PRN PRN Reason: Additional IVPB Infusion Multivitamins 10 ml/ Chromium/Copper/Manganese/Seleni/Zn 1 ml/ Folic Acid 1 mg/ Amino Acids/Electrolytes 2,011 mls @ 84 mls/hr IV .[id number] [facility] Stop: 10/17/19 15:48 Fat Emulsion Intravenous (Intralipid 20%) 250 mls @ 21 mls/hr IV .[id number] [facility] Stop: 10/17/19 03:54 Cefepime HCl 2 gm/ Sodium (Chloride) 100 mls @ 200 mls/hr IV Q24 [facility] Last Infusion: 10/16/19 11:20 Dose: Infused Documented by: Potassium Chloride 40 meq/ (Sodium Chloride) 120 mls @ 100 mls/hr IV BOLUS X1 ONE Stop: 10/16/19 16:41 Melatonin (Melatonin) 3 mg PO QHS PRN PRN PRN Reason: INSOMNIA Ondansetron HCl (Zofran) 4 mg IV Q6H PRN PRN PRN Reason: NAUSEA/VOMITING Last Admin: 10/16/19 10:19 Dose: 4 mg Documented by: Sodium Chloride () 10 - 40 ml IV UD PRN PRN Reason: SALINE FLUSH Last Admin: 10/16/19 05:28 Dose: 20 ml Documented by: Sodium Chloride (0.9% Nacl (Sterile) Posiflush) 10 - 40 ml IV UD PRN PRN Reason: Port access or dressing change Tbo-Filgrastim (Granix) 300 mcg SC DAILY [facility] Last Admin: 10/16/19 10:49 Dose: 300 mcg Documented by: Medical Necessity - Tobacco Use Smoking Status: Never smoker Assessment/Plan 1. Syncope secondary to dehydration with possible XENA/hypokalemia and hyponatremia -Contraction alkalosis secondary to poor p.o. intake and peritoneal drainage, chloride 73 with an elevated bicarb on admission -She has a PEG tube set to gravity drainage therefore it is unclear as to how much she actually absorbs p.o. -Her right nephrostomy tube is secondary to obstruction likely from peritoneal mets, will continue this to drainage -Had a therapeutic paracentesis done today at bedside -Nutrition is primarily through TPN that she has been on since April -Continue with IV fluids and repeat labs in the morning -Echo was unremarkable -Continue with her TPN -Her creatinine on admission is 1.65 and is now up to 1.82 -Sodium has improved, her potassium is slow to improve but it is improving 2. Ovarian cancer with peritoneal metastases/neutropenia and UTI -She has been undergoing chemotherapy since 2016 with a single remission for 6 months -I did have a 20-minute discussion with the family on admission on both CODE STATUS as well as palliative care and hospice. She is a DNR CCA, however it does not appear that they are ready to discuss palliative care or hospice. They would like to continue with chemotherapy at the moment, they state that prior to her admission to [facility] with SVT her quality of life was pretty good and that she was much more ambulatory than she has been the last several weeks. -She discussed today with her daughter that she would like to go home on hospice. Hospice to set up the home hospital bed and will discuss the case with her primary oncologist -Her white blood cell count did drop today and she was started on Granix as well as cefepime as she did have a slight rise in her temperature to 99.5. Blood and urine cultures are pending, the urine culture showing greater than 100,000 CFU of gram-negative rods 3. SVT status post ablation -Currently on metoprolol 12.5 mg twice daily, EKG in the ER demonstrated prolonged QT -We will continue with her beta-elo but will obtain an echo DVT: Heparin Inpatient E&M: [id number] Subs Hosp L2
--- NOTE | 2019-10-16 15:49 | CASEMGMT ---
Columba from Hospice here to see pt and pt signed Hospice papers at this time. Per Columba, all equipment to be delivered to daughter's home tonight and pt to be discharged tomorrow. Green sheet on chart to fax/notify Hospice of discharge. Sherita ANDREWS CM
[2019-10-16] MEDS: Fat Emulsions 20% 250 ML IV (16:28)
[2019-10-16 19:10] LABS: Bedside Glucose 201 mg/dL (70-110)
[2019-10-17] VITALS (7 sets, daily range): BP systolic 91–98; BP diastolic 52–62; PULSE 116–132; RESP 16; TEMP 37.1–38.1; O2SAT 93–97
[2019-10-17 00:10] LABS: Bedside Glucose 171 mg/dL (70-110)
[2019-10-17] MEDS: 0.9% Normal Saline 1,000 ML 125 ML IV ×2 (01:21→09:24)
[2019-10-17] MEDS: LORazepam 1 MG Tablet PO (06:29)
[2019-10-17 06:46] LABS: Bedside Glucose 174 mg/dL (70-110)
[2019-10-17 07:33] LABS: Absolute Lymphocyte Count 0.55 X10^3/uL (0.83-4.51); Absolute Neutrophil Count 2.1 X10^3/uL (2.0-7.7); Basophil# 0.06 X10^3/uL; Basophil% 2.2 % (0-1); Hematocrit 26.2 % (37-47); Hemoglobin 8.2 g/dL (12.0-15.0); Lymphocyte # 0.55 X10^3/ul (4.0); Lymphocyte % 19.7 % (19-41); Mean Corp Hgb Conc 31.3 g/dL (32-36); Mean Corpuscular Hgb 29.7 pg (27.0-32.0); Mean Corpuscular Volume 94.9 fL (81-99); Mean Platelet Vol. 10.9 fl (6.2-12.0); Monocyte# 0.05 X10^3/uL; Monocyte% 1.8 % (0-10); NRBC Flagged by Analyzer 0 % (0-5); Neutrophil # 2.09 X10^3/uL (2.7-7.7); Neutrophil % 74.9 % (47-70); POSITIVE DIFFERENTIAL YES; POSITIVE MORPHOLOGY YES; Platelet Count 305 K/mm3 (150-450); RBC Distribution Width CV 16.6 % (11.6-14.6); RBC Distribution Width SD 56.8 fl (35.1-43.9); Red Blood Count 2.76 M/mm3 (4.2-5.4); White Blood Count 2.8 K/mm3 (4.4-11.0)
[2019-10-17 07:56] LABS: Differential Indicated SCAN CRITERIA MET
[2019-10-17 08:02] LABS: Anion Gap 6 (5-15); BUN 55 mg/dL (7-18); BUN/Creat Ratio 31.6 RATIO (10-20); Calcium,Total 8.7 mg/dL (8.5-10.1); Chloride 86 mmol/L (98-107); Creatinine, Serum 1.74 mg/dL (0.55-1.02); EST Glomerular Filtration Rate 32 mL/min (>60); Est Glom Filt Rate - Afr Amer 39 mL/min (>60); Estimated Creatinine Clearance 34.69 ml/min; Glucose 177 mg/dL (74-106); Potassium 2.6 mmol/L (3.5-5.1); Sodium Level 136 mmol/L (136-145); Triglycerides 154 mg/dL
[2019-10-17 08:37] LABS: Differential Comment SCANNED
--- NOTE | 2019-10-17 09:13 | DCINST_ITS ---
You will use the following diet at home:: Regular Your food should be the consistency of: Regular Your liquids should be the consistency of: Regular/Thin Discharge Activity: Return to Normal Activity Allergies/Adverse Reactions: Allergies paclitaxel [From Taxol] Allergy (Verified 10/15/19 09:18) Anaphylaxis Medications to take at Discharge Metoprolol Tartrate 12.5 mg PO TID 10/15/19 Cephalexin [Keflex] 500 mg PO Q6 #20 cap 10/17/19 Potassium Chloride [K-Dur] 40 meq PO BID #60 tab 10/17/19 The following prescriptions were given: Potassium Chloride [K-Dur] 40 meq PO BID #60 tab Transmission Status: Pending to [facility] Cephalexin [Keflex] 500 mg PO Q6 #20 cap Transmission Status: Pending to [facility] Primary Care Physician: Care Physician,No Primary [Primary Care Provider] - Test Results: Test results from this visit will be discussed in further detail at your follow- up appointment, if applicable.
[2019-10-17] MEDS: TBO-FILGRASTIM 300 MCG/0.5 ML ML SC (10:55)
--- NOTE | 2019-10-17 10:55 | DS.PCM_ITS ---
Discharge Date and Diagnosis Date of Admission: 10/15/19 Date of Discharge: 10/17/19 Hospital Course and Treatment Imaging Results: Clinical Impression(s) from Imaging Studies Brain CT 10/15/19 09:30 IMPRESSION: Normal unenhanced CT scan of the brain. Electronically Signed: Jorge Allisonjosé miguel, at 10:34 EDT , Service support , Chest X-Ray 10/15/19 09:30 IMPRESSION: No acute abnormality is seen. Electronically Signed: Jorge Aime, at 10:34 EDT , Service support , Cervical Spine CT 10/15/19 09:31 IMPRESSION: Normal unenhanced CT examination of the cervical spine. Electronically Signed: Jorge Aime, at 10:36 EDT , Service support , Consults: None Operations: None Procedures: None Summary of Care Provided: Per HPI: The patient is a 59 year old F with a PMH as below who presents with syncope. She says today she was in the bathroom and she fell forward and hit her head and blacked out. Her daughter who lives with her said that she heard the fall and states that her mom was only out for a couple of seconds. She denies any palpitations prior to the fall but she has been feeling weak since her recent admission to the [facility] for an ablation for SVT about a month ago. She has a history of ovarian cancer with peritoneal mets, this was first diagnosed and 2017 and she underwent chemotherapy and went into remission for 6 months and since then has been undergoing chemotherapy. 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 She has been on TPN since April per the daughter. She also gets paracentesis every other day by home health, her last drainage was about 350 cc yesterday. She does not eat or drink very well and when she presented to the ER today she was anemic with a potassium of 2.4, chloride of 73 and a CO2 greater than 45. Her creatinine is 1.65 and her lactic acid was elevated to 2.5 without any signs of infection. She denies any abdominal pain or fevers, chills. She denies any dysuria but she does have 4+ urine bacteria. Hospital Course: 1. Syncope secondary to dehydration with possible XENA/hyperkalemia and [id number]-old female with ovarian cancer and peritoneal metastases presents with an episode of syncope. She has not been eating or drinking very well she is also been having some peritoneal drainage at bedside. Her electrolytes on admission were more abnormal with a sodium of 129, potassium of 2.4, chloride of 73, and a bicarb of 45. Her lactic acid was also elevated which did improve. She had an echo for her syncope which was unremarkable. She was continued on IV fluids and her sodium did improve as is her chloride slowly however she has been having difficulty maintaining her potassium. She is curre ntly receiving her last dose of IV potassium. 2. Ovarian cancer with peritoneal metastases/neutropenia in the setting of a Klebsiella pneumonia UTI-initially on admission she was not neutropenic however on the next day she did develop neutropenia with an absolute neutrophil count of 0.8 therefore she was started on cefepime and Granix, her counts did recover on the day of discharge she did receive another dose of Granix prior to leaving the hospital. Her urine cultures come back positive for Klebsiella and therefore she was transitioned to Keflex. However because she has ovarian cancer which started in 2017 and she has only gone through remission one time and that lasted for only 6 months she has elected to go home on hospice. We will continue with p.o. potassium at home as well as p.o. Keflex 4 times daily for 5 more days, to complete a 7-day course. 3. SVT status post ablation is being managed with metoprolol 4. Disposition is home with home hospice - Physical Exam Vitals/I&O's: Vital Signs Temp Pulse Resp BP Pulse Ox 98.7 F 117 H 16 98/55 L 95 10/17/19 09:29 10/17/19 09:29 10/17/19 09:29 10/17/19 09:29 10/17/19 09:29 Oxygen Flow Rate (L/min) 2 Oxygen Delivery Method Room Air Weight: 172 lb 13.478 oz Body Mass Index (BMI) 27.6 Orthostatic Vital Signs Start: 10/15/19 13:36 Freq: q24h Status: Active Protocol: Activity Type Activity Date Activity User E-Sign Co-Sign Detail Recorded Client Recorded Date Recorded By Document 10/15/19 13:36 [facility] [id number] 10/15/19 13:56 [facility] 10/15/19 13:36 Orthostatic Vitals Sitting -Blood Pressure (90/60-120/80) 99/64 -Extremity Use Right Arm -Pulse Rate (60-100) 92 Lying -Blood Pressure (90/60-120/80) 99/59 L -Extremity Use Right Arm -Pulse Rate (60-100) 91 Intake and Output for Last 24 Hours 10/15/19 10/16/19 10/17/19 23:59 23:59 23:59 Intake Total 2558.33 / 2558.33 2847.92 / 2847.92 2414.17 / 2414.17 Output Total 1300 / 1300 4325 / 4325 4100 / 4100 Balance 1258.33 / 1258.33 -1477.08 / -1477.08 -1685.83 / -1685.83 eneral: Alert, Oriented x3, Cooperative, Lethargic HEENT: Atraumatic, PERRLA, EOMI, Normocephalic Oral: Dry Mucosa Neck: Supple, No JVD Lungs: Clear to auscultation, Normal air movement, No rhonchi, No wheeze, No rales, Diminished Cardiovascular: Regular rate, Regular Rhythm, Normal S1, Normal S2, No murmurs Abdomen: Soft, Non Tender, No Hepato-splenomegaly, Distended Extremities: No edema, Capillary Refill Less than 3 Seconds Skin: No rashes, No breakdown Neurological: Neuro grossly intact, Sensory exam intact to light touch and pain Psych/Mental Status: Normal Affect, Appropriate Microbiology Past 72 Hours 10/15/19 13:50 Urine, Clean Catch Urine Culture - Final Klebsiella pneumoniae sp pneum Laboratory Results 10/15/19 09:54: Diff Path Review Reviewed 10/16/19 05:05: Diff Path Review Reviewed 10/16/19 14:33: POC Glucose 114 H 10/16/19 19:02: POC Glucose 201 H 10/17/19 00:02: POC Glucose 171 H 10/17/19 06:28: POC Glucose 174 H 10/17/19 07:05: Sodium 136, Potassium 2.6 L*, Chloride 86 L, Carbon Dioxide 44.0 H, Anion Gap 6, BUN 55 H, Creatinine 1.74 H, Estim Creat Clear Calc 34.69, Est GFR (MDRD) Af Amer 39 L, Est GFR (MDRD) Non-Af 32 L, BUN/Creatinine Ratio 31.6 H , Glucose 177 H, Calcium 8.7, Triglycerides 154 10/17/19 07:05: WBC 2.8 L, RBC 2.76 L, Hgb 8.2 L, Hct 26.2 L, MCV 94.9, MCH 29 .7, MCHC 31.3 L, RDW Std Deviation 56.8 H, RDW Coeff of Kalyani 16.6 H, Plt Count 305, MPV 10.9, Immature Gran % (Auto) 1.400 H, Neut % (Auto) 74.9 H, Lymph % (Auto) 19.7, [place] % (Auto) 1.8, Eos % (Auto) 0.0, Baso % (Auto) 2.2 H, Absolute Neuts (auto) 2.1, Absolute Lymphs (auto) 0.55 L, Nucleated RBC % 0, Differential Comment SCANNED Current Medications Acetaminophen (Tylenol) 650 mg PO Q6H PRN PRN PRN Reason: Pain Score 1-10/Temp > 100.7 F Heparin Sodium (Porcine) (Heparin Na) 5,000 unit SC Q8 [facility] Last Admin: 10/17/19 05:50 Dose: Not Given Documented by: Sodium Chloride () 1,000 mls @ 125 mls/hr IV .Q8H [facility] Last Admin: 10/17/19 09:24 Dose: 125 mls/hr Documented by: Sodium Chloride () 250 mls @ 15 mls/hr IV .[id number] PRN PRN Reason: Saline Flush Sodium Chloride () 250 mls @ 15 mls/hr IV .[id number] PRN PRN Reason: Additional IVPB Infusion Multivitamins 10 ml/ Chromium/Copper/Manganese/Seleni/Zn 1 ml/ Folic Acid 1 mg/ Amino Acids/Electrolytes 2,011 mls @ 84 mls/hr IV .[id number] [facility] Stop: 10/17/19 15:48 Last Admin: 10/16/19 16:27 Dose: 84 mls/hr Documented by: Cefepime HCl 2 gm/ Sodium (Chloride) 100 mls @ 200 mls/hr IV Q24 [facility] Last Infusion: 10/16/19 11:20 Dose: Infused Documented by: Potassium Chloride 40 meq/ (Sodium Chloride) 120 mls @ 100 mls/hr IV BOLUS X1 ONE Stop: 10/17/19 10:56 Lorazepam (Ativan) 1 mg PO Q4H PRN PRN PRN Reason: ANXIETY Last Admin: 10/17/19 06:29 Dose: 1 mg Documented by: Melatonin (Melatonin) 3 mg PO QHS PRN PRN PRN Reason: INSOMNIA Ondansetron HCl (Zofran) 4 mg IV Q6H PRN PRN PRN Reason: NAUSEA/VOMITING Last Admin: 10/16/19 10:19 Dose: 4 mg Documented by: Sodium Chloride () 10 - 40 ml IV UD PRN PRN Reason: SALINE FLUSH Last Admin: 10/16/19 05:28 Dose: 20 ml Documented by: Sodium Chloride (0.9% Nacl (Sterile) Posiflush) 10 - 40 ml IV UD PRN PRN Reason: Port access or dressing change Tbo-Filgrastim (Granix) 300 mcg SC DAILY [facility] Last Admin: 10/16/19 10:49 Dose: 300 mcg Documented by: Discharge Activity: Return to Normal Activity Home Medications: Medications to take at Discharge Metoprolol Tartrate 12.5 mg PO TID 10/15/19 Cephalexin [Keflex] 500 mg PO Q6 #20 cap 10/17/19 Potassium Chloride [K-Dur] 40 meq PO BID #60 tab 10/17/19 Following Prescriptions Were Given to Patient: Potassium Chloride [K-Dur] 40 meq PO BID #60 tab Transmission Status: Received by [facility] Cephalexin [Keflex] 500 mg PO Q6 #20 cap Transmission Status: Received by [facility] Primary Care Physician: Care Physician,No Primary [Primary Care Provider] - Disposition: Home with Hospice Minutes spent on discharge:: 35 Patient Condition:: Stable Medical Necessity - Tobacco Use Smoking Status: Never smoker Meaningful Use Info Meaningful Use Diagnoses (Choose all that apply): None applicable Inpatient E&M: 11711 Disch Hosp
[2019-10-17 12:51] LABS: Bedside Glucose 173 mg/dL (70-110)
[2019-10-17] MEDS: Ondansetron 4 MG/2 ML Vial IV (14:19)
[2019-10-17] MEDS: 0.9% Saline Lock 10 ML Syringe IV (14:25)
--- NOTE | 2019-10-17 15:33 | NURSING ---
Attempted to contact patient's daughter, Malaika to inform her that patient's home TPN is still here at the hospital. No answer.
--- NOTE | 2019-10-17 19:04 | NURSING ---
Called and spoke with Malaika, patient's daughter. Informed her that patient's home TPN is here. States that she doesn't need it. Okay to get rid of.
== END 2019-10-17 14:10 | disposition hospice, home (50) | DRG 641 ==
LOC: ED 10:42 → PCU 11:17
PROVIDERS: Admitting Provider Family Medicine; Emergency Provider Emergency Medicine; Visit Provider Family Medicine
DX: E86.0 Dehydration (principal); N17.9 Acute kidney failure, unspecified; C56.9 Malignant neoplasm of unspecified ovary; C78.6 Secondary malignant neoplasm of retroperitoneum and peritoneum; I47.1 Supraventricular tachycardia; T83.512A Infection and inflammatory reaction due to nephrostomy catheter, initial encounter; R55 Syncope and collapse; E87.1 Hypo-osmolality and hyponatremia; B96.1 Klebsiella pneumoniae [K. pneumoniae] as the cause of diseases classified elsewhere; E87.6 Hypokalemia; E87.8 Other disorders of electrolyte and fluid balance, not elsewhere classified; D70.9 Neutropenia, unspecified; S01.81XA Laceration without foreign body of other part of head, initial encounter; W19.XXXA Unspecified fall, initial encounter; Z66 Do not resuscitate; Z93.1 Gastrostomy status; Z93.6 Other artificial openings of urinary tract status; Z79.899 Other long term (current) drug therapy
CPT/HCPCS: 36415; 70450; 71045; 72125; 80048; 80053; 81001; 82962; 83605; 83735; 84100; 84478; 85025; 85610; 87040; 87077; 87086; 87088; 87186; 93005; 93306; 97163; 97166; 97802; 97803; 99284; J7030; A4216; J1447; J2405